=== PATIENT | female | born 1990 | race Caucasian/White ===

== ENCOUNTER → 2020-03-21 | Outpatient (CLI) | payer OTHER ==
[~2020-03-21] MED LIST: DESOGESTREL-ETH1 TAB PO; IBU-6600 MG PO; MOTRIN600 MG PO; ULTRAM50 MG PO
== END | disposition home or self-care (01) ==
LOC: COVID19 01:36
DX: R06.00 Dyspnea, unspecified (principal); Z20.828 Contact with and (suspected) exposure to other viral communicable diseases